=== PATIENT | female | born 2000 | race Caucasian/White ===

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

== ENCOUNTER 2025-01-28 22:05 | Emergency (ER) | payer MEDICAID ==
[~2025-01-28] VITALS: Ht 167.6 cm; Wt 77.0 kg
[~2025-01-28 22:05] MED LIST: BIRTH CONTROL PILLS
[2025-01-28 22:25] VITALS: TEMP 36.7; O2SAT 98
[2025-01-28] MEDS: LORAZEPAM 0.5MG TABLET PO ONE (23:08)
[2025-01-28 23:27] LABS: BASOPHILS % 0.0 % (0.0-2.0); EOSINOPHILS % 0.0 % (0.0-5.0); HEMATOCRIT. 40.6 % (36.0-48.0); HEMOGLOBIN. 13.5 g/dL (12.0-16.0); LYMPHOCYTES % 25.2 % (20.0-50.0); MEAN PLATELET VOLUME 7.3 fl (7.4-10.4); MONOCYTES % 5.8 % (2.0-8.0); NEUTROPHILS % 69.0 % (40.0-76.0); PLATELET 287 x1000/uL (130-400); RED BLOOD CELL COUNT 4.85 mill/uL (4.2-5.4); RED CELL DISTRIBUTION WIDTH 14.2 % (11.6-14.6)
[2025-01-28 23:41] LABS: CREATININE 0.9 mg/dL (0.6-1.0); UREA NITROGEN BLOOD 7 mg/dL (9-23)
[2025-01-28 23:42] LABS: TROPONIN I HIGH SENSITIVITY < 4 ng/L (3.0-34)
[2025-01-29] MEDS ORDERED: LORA-249 MT (00:20)
[2025-01-29 00:27] VITALS: BP 125/78; PULSE 108; RESP 20; O2SAT 100
== END 2025-01-29 00:28 | disposition home or self-care (01) ==
LOC: ER 22:05
DX: F11.23 Opioid dependence with withdrawal (principal); G47.9 Sleep disorder, unspecified; F41.9 Anxiety disorder, unspecified; G25.81 Restless legs syndrome; R06.02 Shortness of breath; Z88.0 Allergy status to penicillin
CPT/HCPCS: 36415; 80048; 84484; 85025; 93005; 99284